=== PATIENT | male | born 1955 | race Caucasian/White ===

== ENCOUNTER 2018-04-10 14:05 | Inpatient (IN) | payer OTHER, SELFPAY ==
[2018-04-10] MEDS ORDERED: Acetaminophen 500 MG TAB ONE (14:45)
[2018-04-10 15:13] LABS: Hemoglobin 12.3 g/dL (14.0-18.0); Mean Corpuscular Hemoglobin 27.9 pg (27.0-31.0); Mean Corpuscular Volume 84.5 fL (78.0-98.0); Mean Platelet Volume 8.7 fL (7.4-10.4); Platelet Count 105 thou/uL (130-400); RBC Distribution Width 14.6 % (11.5-14.5); Red Blood Cell (RBC) Count 4.43 mill/uL (4.70-6.10); White Blood Cell (WBC) Count 4.8 thou/uL (4.8-10.8)
[2018-04-10 15:16] LABS: INR-International Normal Ratio 1.4; PTT 34.2 SEC (22.9-36.1); Prothrombin Time 16.9 SEC (12.0-14.7)
[2018-04-10 15:32] LABS: Anisocytosis SLIGHT = 6-15 cells (100X) (0-5/hpf); Band 10 % (5-11); Hypochromia SLIGHT = 6-15 cells (100X) (0-5/hpf); Lymphocytes 5 % (21-51); MDiff Complete? YES; Monocytes 2 % (0-10); Neutrophil 83 % (42-75); Platelet Morphology Comment Appears Decreased
[2018-04-10 15:34] LABS: ALT (SGPT) 34 U/L (8-55); AST (SGOT) 102 U/L (5-34); Albumin 3.4 g/dL (3.4-4.8); Alkaline Phosphatase 82 U/L (40-150); Anion Gap 13 mmol/L (10-20); BUN (Urea Nitrogen) 17 mg/dL (8.4-25.7); Bilirubin, Total 0.7 mg/dL (0.2-1.2); CK (CPK) 65 U/L (30-200); Calc. Creatinine Clearance 0 mL/min (70-130); Carbon Dioxide 22 mmol/L (23-31); Chloride 103 mmol/L (98-107); Estimated GFR-MDRD 66; Glucose 163 mg/dL (80-115); Potassium 4.5 mmol/L (3.5-5.1); Protein, Total 8.4 g/dL (5.8-8.1); Sodium 133 mmol/L (136-145)
--- NOTE | 2018-04-10 16:23 | RAD ---
CHEST 1 VIEW: Date: 04/10/18 HISTORY: Fever. COMPARISON: 06/19/16. FINDINGS: Cardiac silhouette is magnified by projection. Pulmonary vasculature remains upper limits of normal. Mediastinum is midline. No confluent air space consolidation or evidence of pneumothorax. Cardiac mon itor leads overlie the chest. IMPRESSION: No active cardiopulmonary abnormalities are demonstrated. POS: [facility]
[2018-04-10] MEDS ORDERED: Aspirin 325 MG TAB ONE (16:33)
--- NOTE | 2018-04-10 16:33 | CT ---
CT HEAD NONCONTRAST: History: Fall. Head injury. Left facial droop. FINDINGS: There is no evidence of acute intracranial hemorrhage or infarct. Ventricles appear normal in size, s hape, and position. A subtle small linear focus of increased density in the left temporal lobe is fav ored to represent coronoid in the lateral ventricle, possibly extending into the choroidal fissure. Visualized paranasal sinuses remain well aerated. IMPRESSION: No acute intracranial abnormalities are demonstrated. POS: [facility]
[2018-04-10] MEDS ORDERED: Oseltamivir 75 MG CAP PO SCH (18:30)
[2018-04-10] MEDS ORDERED: Ondansetron ODT 4 MG TAB PO PRN (19:15)
[2018-04-10] MEDS ORDERED: Labetalol HCl 100 MG/20 ML VIAL SLOW IVP PRN (19:15)
[2018-04-10] MEDS ORDERED: Guaifenesin DM 100-10/5 ML UDCUP PO PRN (19:15)
[2018-04-10] MEDS ORDERED: Acetaminophen 650 MG Suppository PR PRN (19:15)
[2018-04-10] MEDS ORDERED: hydrALAZINE 20 MG/ML VIAL SLOW IVP PRN (19:15)
[2018-04-10] MEDS ORDERED: Senokot S 8.6-50 MG TAB PO PRN (19:15)
[2018-04-10] MEDS ORDERED: Ondansetron PF 4 MG/2 ML Vial IVP PRN (19:15)
[2018-04-10 19:45] VITALS: BMI 34.9
[2018-04-10] MEDS: Acetaminophen 325 MG TAB PO PRN (20:48)
[2018-04-10] MEDS: Famotidine 20 MG TAB PO SCH (20:48)
[2018-04-10] MEDS: Pravastatin Sodium 20 MG TAB PO SCH (20:49)
--- NOTE | 2018-04-10 21:10 | HP ---
PRIMARY CARE PHYSICIAN: Dante Nelson DO CHIEF COMPLAINT: Weakness of the left side of body. HISTORY OF PRESENT ILLNESS: This is a 62-year-old white male with a known history of previous stroke in November of last year with left-sided weakness and left facial droop. His symptoms had improved markedly, maybe just a little bit of weakness, residual on the left side of his body and occasional shocks down into his left arm. He reports that he has been feeling more depressed about 2 weeks ago and stopped taking his medications including his SSRI and his Plavix, pravastatin, and losartan. He then started feeling really more weak about 2-3 days ago, felt kind of bad yesterday with some abdominal pain and then the patient this morning fell trying to get out of bed, noted significant weakness in the left side of his body and his daughter came over to check on him and thought that his face looked a little droopy on the left side, so they brought him to the emergency room. His symptoms improved after about 45 minutes and his strength is almost back the to baseline he has had after his previous stroke. He did spike some fevers today and then had a fever of 103 in the emergency room. His flu test came back positive. He said thinking back he has had some cough over the last couple of days and some runny nose with thick mucus, but no other symptoms from it. PAST MEDICAL HISTORY: 1. Stroke with left-sided symptoms with minimal residual. 2. Hypertension since his stroke, on losartan. 3. Mild hyperlipidemia, on pravastatin since stroke. 4. Psoriasis, followed by Dr. Gaytan. PAST SURGICAL HISTORY: Left knee ACL repair. 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 SOCIAL HISTORY: The patient is . His is present in the room. He quit smoking 20-30 years ago. No alcohol or illicit drug use. FAMILY HISTORY: Mother with diabetes and of dementia in her 60s. Father with diabetes, had myocardial infarction and in his 60s and a brother with diabetes mellitus as well. ALLERGIES: NO KNOWN DRUG ALLERGIES. CURRENT MEDICATIONS: 1. Pravastatin 10 mg daily. 2. Losartan 50 mg daily. 3. Citalopram 40 mg daily. 4. Clopidogrel 75 mg daily. REVIEW OF SYSTEMS: CONSTITUTIONAL: See HPI. EYES: He feels like his left eye is strained a little bit since the recurrent stroke symptoms. Otherwise, no blurred vision or double vision. ENT: See HPI. Minimal sore throat this morning. CARDIOVASCULAR: No chest pain. No palpitations or racing heart. PULMONARY: Some coughing, nonproductive. No shortness of breath. No wheezing. No chest tightness. GASTROINTESTINAL: Suprapubic crampy abdominal pain, on and off for the last 2-3 days. No diarrhea or constipation. No nausea or vomiting. GENITOURINARY: He has had a little bit of difficulty voiding recently, but no dysuria, no hematuria. MUSCULOSKELETAL: No muscle aches or joint pain. SKIN: He has some psoriatic plaques on his extensor surfaces of his hands, fingers, and wrists. These are at baseline, not requiring any medications for the last 2 months. No new skin lesions. NEUROLOGIC: See HPI. PSYCHIATRIC: See HPI. PHYSICAL EXAMINATION: VITAL SIGNS: Blood pressure 125/45, pulse 93, respirations 18, temperature 99.3, down from 103 after given Tylenol in the emergency room, O2 saturation 98% on room air. GENERAL: This is a well-developed, obese white male, in no acute distress. HEENT: Pupils are equal, round, and reactive to light. Oropharynx is with mild erythema of the posterior oropharynx. No exudate. No lesions. NECK: Supple. No lymphadenopathy. No thyroid nodules or enlargement. No JVD. HEART: Regular rate and rhythm. No murmurs, rubs, or gallops. LUNGS: Clear to auscultation bilaterally. No wheezes, crackles, or rhonchi. ABDOMEN: Soft, nontender to palpation. Normoactive bowel sounds. No hepatosplenomegaly or other masses. EXTREMITIES: No clubbing, cyanosis, or edema. SKIN: The patient has some silvery psoriatic plaques on the extensor surfaces of the fingers, hands and wrists bilaterally. NEUROLOGIC: The patient has intact strength 5/5 in bilateral upper and lower extremities. He has a minimal left facial droop compared to the right, better than previously from a picture that his showed from her phone. He has intact sensation throughout. Clear speech. PSYCHIATRIC: Alert, oriented x3. He has a little bit of a depressed mood and affect. LABORATORY DATA: CBC with a hemoglobin 12.3, hematocrit 37.4, and platelet count of 105. Coagulation profile with PT of 16.9, INR 1.4. Complete metabolic panel notable for a sodium of 133, carbon dioxide of 22, glucose of 163, AST of 102, and total serum protein of 8.4. The rest is normal. Chest x-ray; I did review the chest x-ray done in the emergency room along with the radiologist's report. There are no infiltrates, no cardiomegaly, no acute cardiopulmonary process. CT of the brain was normal per the radiologist's report. ASSESSMENT: 1. Acute transient ischemic attack versus recurrent stroke. The patient's symptoms seem to be back to baseline after his previous stroke, it is possible that he actually had uncovering of previous stroke symptoms from the stress of his flu infection versus a recurrent stroke. We will put him back on his Plavix, give him aspirin, and get an MRI of the brain and neurologic consult for tomorrow. We will monitor his blood pressures, but allow permissive hypertension. 2. Acute influenza A without evidence of pneumonia or any complications. We will give a dose of Tamiflu here in the emergency room and continue for a total of 10 doses and give Tylenol as needed for fever. 3. History of hypertension. We will resume patient's losartan once we have ruled out an acute stroke. 4. Hyperlipidemia. We will resume patient's pravastatin. He might benefit from increase to a stronger medicine as well. We will go ahead and resume the statin, but we will also get a lipid profile in the morning to see if he needs an increase in dose. 5. Gastrointestinal prophylaxis. We will put the patient on Pepcid twice a day. 6. Deep venous thrombosis prophylaxis. We will put the patient on SCDs while in bed. We will hold Lovenox and heparin due to the low platelet count. 7. Thrombocytopenia, mild. Uncertain of the cause at this point. We will monitor closely. 8. Code status. I did discuss this with the patient. He stats he is a full code. Though he would not want to have extensive resuscitation efforts done, just try a few times to get his heart beat back. Should he be incapacitated, he states that his would be his medical decision maker, her name is Helena Vick. Job ID: [id number]
[2018-04-11] MEDS: Acetaminophen 325 MG TAB PO PRN ×3 (00:48→13:26)
[2018-04-11 05:57] LABS: Anion Gap 11 mmol/L (10-20); BUN (Urea Nitrogen) 20 mg/dL (8.4-25.7); Calc. Creatinine Clearance 121 mL/min (70-130); Calcium 8.2 mg/dL (7.8-10.44); Carbon Dioxide 23 mmol/L (23-31); Cardiac Risk 3.3 (Less than 4.5); Chloride 105 mmol/L (98-107); Cholesterol 83 mg/dl (< 200 Desired); Estimated GFR-MDRD 71; Glucose 93 mg/dL (80-115); HDL Cholesterol 25 mg/dL (>60 Neg Risk); LDL Cholesterol, Calculated 40 mg/dL; Potassium 3.9 mmol/L (3.5-5.1); Sodium 135 mmol/L (136-145); Triglycerides 90 mg/dL (Less than 150)
[2018-04-11 07:22] LABS: Hemoglobin 10.7 g/dL (14.0-18.0); Mean Corpuscular HGB CONC 33.3 g/dL (32.0-36.0); Mean Corpuscular Hemoglobin 28.7 pg (27.0-31.0); Mean Corpuscular Volume 86.3 fL (78.0-98.0); Mean Platelet Volume 9.5 fL (7.4-10.4); Platelet Count 66 thou/uL (130-400); RBC Distribution Width 14.4 % (11.5-14.5); Red Blood Cell (RBC) Count 3.71 mill/uL (4.70-6.10); White Blood Cell (WBC) Count 2.8 thou/uL (4.8-10.8)
[2018-04-11 08:41] LABS: Band 27 % (5-11); Lymphocytes 1 % (21-51); MDiff Complete? YES; Monocytes 17 % (0-10); Neutrophil 46 % (42-75); Platelet Morphology Comment Appears Decreased; Polychromasia SLIGHT = 2-3 cells (100X) (0-2/hpf); Reactive Lymphocytes 10 % (0-10)
--- NOTE | 2018-04-11 08:47 | PDOC.PN ---
- Subjective Encounter Start Date: 04/11/18 Encounter Start Time: 10:00 Subjective: Patient with fever overnight. Feeling a bit better this morning. -: ASA and Plavix on hold due to drop in platelets. - Objective Resuscitation Status - Order Detail: 04/10/18 17:58 Resuscitation Status Routine Resuscitation Status: FULL: Full Resuscitation Discussed with: Patient Additional comments: Don't try for a prolonged time MAR Reviewed: Yes Vital Signs & Weight: Vital Signs (12 hours) Temp Pulse Resp BP Pulse Ox 04/11/18 07:36 100.6 F H 84 18 100/53 L 91 L 04/11/18 04:00 101.1 F H 83 18 112/49 L 90 L 04/11/18 00:00 102.8 F H 88 18 95/51 L 100 Weight Weight 265 lb Result Diagrams: 04/11/18 04:30 04/11/18 04:30 Phys Exam - Physical Examination Constitutional: NAD HEENT: moist MMs Respiratory: no wheezing, no rales, no rhonchi Cardiovascular: RRR Gastrointestinal: soft, positive bowel sounds Neurological: non-focal, moves all 4 limbs left facial droop appears resolved Psychiatric: normal affect, A&O x 3 Dx/Plan (1) Left-sided weakness Code(s): R53.1 - WEAKNESS Status: Acute Comment: improved, TIA vs. recurrent stroke, MRI and neuro consult, restarted on ASA and Plavix but now held due to low platelets (2) Influenza A Code(s): J10.1 - FLU DUE TO OTH IDENT INFLUENZA VIRUS W OTH RESP MANIFEST Status: Acute Comment: still febrile, started on Tamiflu (3) Sepsis Code(s): A41.9 - SEPSIS, UNSPECIFIED ORGANISM Status: Acute Comment: febrile , BP running low in hypertensive patient, will start fluids, no evidence bacterial superinfection at this time (4) Hypertension Code(s): I10 - ESSENTIAL (PRIMARY) HYPERTENSION Status: Chronic Qualifiers: Hypertension type: essential hypertension Qualified Code(s): I10 - Essential (primary) hypertension Comment: hold BP meds for now due to low blood pressures and possible acute stroke (5) Hyperlipidemia Code(s): E78.5 - HYPERLIPIDEMIA, UNSPECIFIED Status: Chronic Comment: on statin, well controlled (6) Thrombocytopenia Code(s): D69.6 - THROMBOCYTOPENIA, UNSPECIFIED Status: Acute Comment: further drop to 60,000, uncertain eitiology, possibly sequela of flu, no bleeding at this time, holding antiplatelets agents until seen by neurology - Plan cont current plan of care, PT/OT, DVT proph w/SCDs * . - Discharge Day Encounter end time: 10:10
[2018-04-11] MEDS ORDERED: Aspirin 81 mg Enteric Coated Tablet PO SCH (09:00)
[2018-04-11] MEDS: Clopidogrel Bisulfate 75 MG TAB PO SCH (09:20)
[2018-04-11] MEDS: Oseltamivir 75 MG CAP PO SCH ×2 (09:21→20:37)
[2018-04-11] MEDS: Famotidine 20 MG TAB PO SCH ×2 (09:21→20:36)
[2018-04-11] MEDS: Sodium Chloride 0.9% 1,000 ML IV SCH (09:28)
--- NOTE | 2018-04-11 15:46 | MRI ---
MRI OF BRAIN WITHOUT CONTRAST: 04/11/18 HISTORY: Evaluate for stroke. COMPARISON: None. CORRELATION: Noncontrast head CT 04/10/18. TECHNIQUE: Brain MRI is performed without intravenous gadolinium administration. Multisequential, multiplanar im aging is performed. FINDINGS: No evidence of acute hemorrhage on the axial gradient echo sequence. There is probable hemosiderin de position in the region of the previously noted malacic and gliotic change. There is associated T2 and STIR hyperintensity. Additional cortically based STIR hyperintensities are noted and are nonspecifi c. No associated restricted diffusion. No evidence of restricted diffusion with regards to the cerebr um or cerebellum. Central arterial flow voids are maintained. Mild mucosal thickening of the paranasal sinuses. IMPRESSION: Absent restricted diffusion. No acute infarct. POS: [facility]
--- NOTE | 2018-04-11 17:51 | CON ---
DATE OF CONSULTATION: 04/11/2018 CONSULTING PHYSICIAN: Hospitalist Services. IMPRESSION: 1. Transient weakness, likely secondary to ongoing fever accentuating his prior neurologic injury. 2. Flu. PLAN: Continue prior antiplatelet and statin therapy. HISTORY OF PRESENT ILLNESS: Mr. Vick is a 62-year-old male with a history of stroke, resulting in some left-sided weakness. He had made a good recovery and was doing well. For the 2-3 days prior to admission, he had been running a high fever. He was feeling pretty beat up and sore. He got out of bed and tried to take a step and his legs seem to give way on him. He subsequently was brought in by ambulance for further evaluation. Initial CT scan of the brain was quite unremarkable. His MRI of the brain shows an old right frontal cortical infarct. His lab work was all unremarkable as well including a lipid ratio of 3.3. He has ran a fever as high as 103. He was subsequently diagnosed with the flu since admission. PAST HISTORY: 1. Hypertension. 2. Hyperlipidemia. 3. Stroke. SOCIAL HISTORY: No tobacco or alcohol. FAMILY HISTORY: Noncontributory. MEDICATIONS: List was reviewed. REVIEW OF SYSTEMS: A 10-system review of systems was otherwise unremarkable. PHYSICAL EXAMINATION: GENERAL: He is a somewhat overweight middle-aged man, in no acute distress. VITAL SIGNS: Otherwise stable. HEENT: Pupils equal and reactive. Conjunctivae clear. Oropharynx clear. NECK: Supple. EXTREMITIES: No cyanosis, clubbing, or edema. NEUROLOGIC: He was alert and cooperative. His speech is fluent and clear. Cranial nerves 2 through 12 are intact. Motor strength testing does not show any asymmetry at this point. Sensation was equal to touch. His [id number] movements were smooth. He can stand and walk independently. LABORATORY DATA: EKG shows a sinus rhythm. SUMMARY: A middle-aged man with some transient weakness on the left in association with high fever related to the flu. I do not think there was an ischemic event, but more likely just accentuation of his old injury due to the fever. I would be happy to follow up with him as needed. Job ID: [id number]
[2018-04-11] MEDS: Pravastatin Sodium 20 MG TAB PO SCH (20:36)
[2018-04-12] MEDS: Acetaminophen 325 MG TAB PO PRN ×2 (03:24→09:22)
[2018-04-12] MEDS: Sodium Chloride 0.9% 1,000 ML IV SCH ×2 (03:25→09:20)
[2018-04-12 05:54] LABS: #Lymphocytes 0.8 thou/uL (1.20-3.40); #Monocytes 0.2 thou/uL (0.11-0.59); #Neutrophils 1.5 thou/uL (1.40-6.50); %Basophils 1.8 % (0.0-1.0); %Eosinophils 0.9 % (0.0-10.0); %Lymphocytes 31.6 % (21.0-51.0); %Monocytes 8.3 % (0.0-10.0); %Neutrophils 57.6 % (42.0-75.0); Hemoglobin 11.3 g/dL (14.0-18.0); Mean Corpuscular HGB CONC 32.7 g/dL (32.0-36.0); Mean Corpuscular Hemoglobin 28.1 pg (27.0-31.0); Mean Corpuscular Volume 85.9 fL (78.0-98.0); Mean Platelet Volume 9.8 fL (7.4-10.4); Platelet Count 65 thou/uL (130-400); RBC Distribution Width 14.4 % (11.5-14.5); Red Blood Cell (RBC) Count 4.02 mill/uL (4.70-6.10); White Blood Cell (WBC) Count 2.6 thou/uL (4.8-10.8)
[2018-04-12 07:43] VITALS: BP 117/61; TEMP 98.6
[2018-04-12] MEDS: Clopidogrel Bisulfate 75 MG TAB PO SCH (09:21)
[2018-04-12] MEDS: Famotidine 20 MG TAB PO SCH (09:21)
[2018-04-12] MEDS: Oseltamivir 75 MG CAP PO SCH (09:22)
--- NOTE | 2018-04-12 10:24 | DIS ---
DATE OF ADMISSION: 04/10/2018 DATE OF DISCHARGE: 04/12/2018 PRIMARY CARE PHYSICIAN: Dr. Dante Nelson. DISCHARGE DISPOSITION: Home. PRIMARY DISCHARGE DIAGNOSES: 1. Sepsis due to influenza A. 2. Smyms-dx-dicapxa left-sided weakness, resolved. SECONDARY DISCHARGE DIAGNOSES: 1. Hypertension. 2. Dyslipidemia. 3. Chronic thrombocytopenia. 4. History of cerebrovascular accident with residual left-sided weakness. PRIMARY PROCEDURES/OPERATIONS: None. RADIOLOGICAL INVESTIGATION: CT of brain is negative for any acute intracranial process. Chest x-ray is normal. MRI of brain did not show any acute process. SIGNIFICANT LABORATORY DATA: WBC 2.6, hemoglobin 11.3, platelets 65. INR 1.4. Sodium 135, creatinine 1.06. LFTs; AST 102, ALT 34, alkaline phosphatase 82, albumin 3.4. LDL 40. Cardiac enzymes, negative. Influenza A, positive. DISCHARGE MEDICATIONS: 1. Celexa 40 mg daily. 2. Plavix 75 mg p.o. daily. 3. Cozaar 50 mg p.o. daily. 4. Pravastatin 10 mg p.o. at bedtime. 5. Tamiflu 75 mg p.o. b.i.d. for 3 more days. CONTRAINDICATION: None. CODE STATUS: Full code. INPATIENT ANTISQUEAK APPLIER: Dr. Genaro Simpson, neurologist was consulted while in hospital. TEST RESULT PENDING ON DISCHARGE: None. ALLERGIES: NO KNOWN DRUG ALLERGIES. DISCHARGE PLAN: Post hospital, the patient will follow up with primary care physician in 1 or 2 weeks. HOSPITAL COURSE: A 62-year-old male, who was admitted by Dr. Hao Lambert. Please see his H and P for further details. The patient was having flu-like symptoms. His influenza A was positive. He was also experiencing more weakness on the left side. He had previous stroke and left-sided weakness with mild residual weakness, that was getting little bit worse. Initial CT of brain was negative, and MRI of brain did not show any acute process. We suspected sepsis-related hypoperfusion in his brain, which might have caused previous area of infarct acting up and Neurology did not recommend any new medication. His weakness on the left side completely improved to baseline. He has low-grade fever while in the hospital from flu, which we are expecting to improve in next day or two. We are prescribing Tamiflu. His sepsis is resolving. He will continue taking all his medication and I advised him to take blood pressure if blood pressure is more than 120. The patient is seen and examined at bedside today. All review of systems reviewed with him and are negative. Plan of care discussed with . PHYSICAL EXAMINATION: VITAL SIGNS: Currently, temperature 98.6, pulse 63, respiratory rate 20, saturation 94% on room air, blood pressure 117/61, weight 265 pounds. GENERAL: The patient is currently alert, oriented, in no acute distress. HEENT: Head; normocephalic, atraumatic. Eyes; pupils are round, reactive to light. Extraocular muscle intact. ENT; oropharynx within normal limit. Moist mucous membranes. No oral lesion. No pharyngeal erythema. No exudate. NECK: Supple. No JVD. No thyromegaly. No carotid bruit. LUNGS: Clear to auscultation without any rhonchi or rales. CARDIAC: S1, S2. Regular without any murmur. ABDOMEN: Soft and benign. EXTREMITIES: No edema. NEUROLOGICAL: Nonfocal examination. The patient is medically stable for discharge today. Job ID: [id number]
--- NOTE | 2018-04-13 17:34 | EKG ---
Test Reason : Blood Pressure : / mmHG Vent. Rate : 111 BPM Atrial Rate : 111 BPM P-R Int : 152 ms QRS Dur : 088 ms QT Int : 326 ms P-R-T Axes : 051 025 048 degrees QTc Int : 443 ms Sinus tachycardia Otherwise normal ECG Confirmed by LAXMI HEREDIA, MIKE Orellana ([id number]), editor newspaper CHINTAN OVALLE ([id number]) on 04/13/2018 5:34:18 PM Referred By: Confirmed By:MIKE HAIR MD
== END 2018-04-12 10:43 | disposition home or self-care (01) | DRG 872 ==
LOC: ERS 14:05 → 2SE 16:21
PROVIDERS: ADMIT Emergency Medicine; ATTEND Emergency Medicine
DX: A41.89 Other specified sepsis (principal); I69.354 Hemiplegia and hemiparesis following cerebral infarction affecting left non-dominant side; J10.1 Influenza due to other identified influenza virus with other respiratory manifestations; E78.5 Hyperlipidemia, unspecified; D69.6 Thrombocytopenia, unspecified; I10 Essential (primary) hypertension; L40.9 Psoriasis, unspecified; Z98.890 Other specified postprocedural states
CPT/HCPCS: 36415; 70450; 70551; 71045; 80048; 80053; 80061; 82550; 84484; 85025; 85610; 85730; 87804; 93005; 96360

== ENCOUNTER 2020-07-02 09:31 | Outpatient (CLI) | payer MEDICARE, BC ==
[2020-07-02] MEDS ORDERED: Iopamidol-370 76% 500 ML 1 ML ONE (11:07)
== END 2020-07-02 09:32 | disposition home or self-care (01) ==
LOC: BICCT 09:31
PROVIDERS: ATTEND Physician Assistant Medical
DX: K74.60 Unspecified cirrhosis of liver (principal); K76.0 Fatty (change of) liver, not elsewhere classified; K59.00 Constipation, unspecified; K25.3 Acute gastric ulcer without hemorrhage or perforation; D64.9 Anemia, unspecified; R16.0 Hepatomegaly, not elsewhere classified; K76.6 Portal hypertension; Z86.010 Personal history of colon polyps
CPT/HCPCS: 74170; 82565; Q9967

== ENCOUNTER 2022-10-13 10:06 | Outpatient (CLI) | payer BC, MEDICARE | END 2022-10-13 10:07 | disposition home or self-care (01) | LOC: LABBT 10:06 | PROVIDERS: ATTEND Orthopaedic Surgery | DX: Z01.818 Encounter for other preprocedural examination (principal); M17.11 Unilateral primary osteoarthritis, right knee | CPT/HCPCS: 71046; 93005; 93010 ==

== ENCOUNTER 2022-10-18 05:25 | Observation (INO) | payer BC, MEDICARE ==
[2022-10-13 10:48] VITALS: BMI 28.0
[2022-10-13 11:31] LABS: Bilirubin Neg (Negative); Blood, Urine Negative (Negative); Clarity Clear (Clear); Glucose, Urine (Dipstick) Normal (Negative); Ketone, Urine Negative (Negative); Leukocyte Negative (Negative); Nitrite Negative (Negative); Protein, Urine (Dipstick) Negative (Neg-Trace); Urobilinogen Normal mg/dL (Less than 2)
[2022-10-13 11:55] LABS: Anion Gap 16 mmol/L (10-20); BUN (Urea Nitrogen) 34 mg/dL (8.4-25.7); Calc. Creatinine Clearance 0 mL/min (70-130); Calcium 9.3 mg/dL (7.8-10.44); Carbon Dioxide 26 mmol/L (23-31); Chloride 108 mmol/L (98-107); Estimated GFR 46; Glucose 123 mg/dL (80-115); Potassium 4.6 mmol/L (3.5-5.1); Sodium 145 mmol/L (136-145)
[2022-10-13 11:59] LABS: #Eosinphils 0.1 10x3/uL (0.0-0.5); #Monocytes 0.4 10x3/uL (0.0-1.1); %Basophils 0.7 % (0.0-2.0); %Eosinophils 1.9 % (0.0-6.0); %Lymphocytes 18.5 % (18.0-47.0); %Monocytes 9.2 % (0.0-10.0); %Neutrophils 69.2 % (40.0-75.0); Hematocrit 36.4 % (38.8-50.0); Hemoglobin 10.7 g/dL (13.5-17.5); Mean Corpuscular HGB CONC 29.4 g/dL (32.0-36.0); Mean Corpuscular Hemoglobin 22.9 pg (27.0-33.0); Mean Corpuscular Volume 77.9 fl (81.2-95.1); Mean Platelet Volume 11.2 fl (7.4-10.4); Platelet Count 212 10x3/uL (150-450); RBC Distribution Width 21.1 % (11.5-14.5); Red Blood Cell (RBC) Count 4.67 10x6/uL (4.32-5.72); White Blood Cell (WBC) Count 4.3 10x3/uL (3.5-10.5)
[2022-10-13 12:01] LABS: Prothrombin Time 10.7 sec (9.5-12.1)
[2022-10-18] MEDS ORDERED: Tranexamic Acid 1,000 MG/10 ML VIAL ONE ×2 (05:54→10:03)
[2022-10-18] MEDS ORDERED: Sodium Chloride 0.9% 100 ML ONE ×2 (05:54→07:12)
[2022-10-18] MEDS ORDERED: Vancomycin (BATCH) 1.5 GRAM/300 ML BAG ONE (05:54)
[2022-10-18] MEDS ORDERED: Bupivacaine PF 0.5% 30 ML VIAL ONE (06:50)
[2022-10-18] MEDS ORDERED: EPINEPHrine 1 MG/ML AMP ONE (06:50)
[2022-10-18] MEDS ORDERED: Lidocaine 1% (PF) 30 ML VIAL ONE (06:50)
[2022-10-18] MEDS ORDERED: Midazolam HCl 2 mg/2 ml Vial ONE (06:50)
[2022-10-18] MEDS ORDERED: fentaNYL 50 mcg/mL 1 mL Vial ONE ×4 (06:50→11:32)
[2022-10-18] MEDS ORDERED: CEFAZOLIN 2 GM VIAL ONE (07:12)
[2022-10-18] MEDS ORDERED: Bupivacaine 0.25% HCL 30 ML VIAL ONE (07:12)
[2022-10-18] MEDS ORDERED: PROPOFOL 200 MG/20 ML VIAL ONE (07:37)
[2022-10-18] MEDS ORDERED: Ondansetron PF 4 MG/2 ML Vial ONE (07:37)
[2022-10-18] MEDS ORDERED: Dexamethasone 20 MG/5 ML VIAL ONE (07:37)
[2022-10-18] MEDS ORDERED: fentaNYL 50 mcg/mL 1 mL Vial SLOW IVP PRN (07:59)
[2022-10-18] MEDS ORDERED: HYDROcodone/Acetaminophen 10/325 mg Tablet PO PRN (08:00)
[2022-10-18] MEDS ORDERED: traMADol HCl 50 MG TAB PO PRN ×2 (08:00)
[2022-10-18] MEDS ORDERED: Zolpidem Tartrate 5 MG TAB PO PRN ×2 (08:00→09:30)
[2022-10-18] MEDS ORDERED: Promethazine HCl 25 MG/ML VIAL IM PRN ×2 (08:00→09:30)
[2022-10-18] MEDS ORDERED: Ropivacaine 0.2% 550 ML 550 ML NERVE BLCK SCH (08:00)
[2022-10-18] MEDS ORDERED: Ondansetron PF 4 MG/2 ML Vial IVP PRN ×2 (08:00→09:30)
[2022-10-18] MEDS ORDERED: Tranexamic Acid 1,000 MG in Sodium Chloride 0.9% 100 ML IVPB SCH (09:30)
[2022-10-18] MEDS ORDERED: diphenhydrAMINE 25 MG CAP PO PRN (09:30)
[2022-10-18] MEDS ORDERED: Acetaminophen 325 MG TAB PO PRN (09:30)
[2022-10-18] MEDS ORDERED: Meperidine HCl/PF 25 MG/ML VIAL ONE (09:39)
[2022-10-18] MEDS: CEFAZOLIN 2 GM in Sodium Chloride 0.9% 100 ML IVPB SCH ×2 (15:39→20:23)
[2022-10-18] MEDS: Sodium Chloride 0.9% 1,000 ML IV SCH ×2 (16:13→19:43)
[2022-10-18] MEDS ORDERED: Vancomycin HCl 1.5 GM in Sodium Chloride 0.9% 250 ML 300 ML IVPB SCH (18:00)
[2022-10-18] MEDS ORDERED: Vancomycin 1.5 GRAM/300 ML BAG 1.5 GM in Premix Bag 1 BAG IVPB SCH (18:15)
[2022-10-18] MEDS: Senokot S 8.6-50 MG TAB PO SCH (20:22)
[2022-10-18] MEDS: Aspirin 81 mg Enteric Coated Tablet PO SCH (20:23)
[2022-10-18] MEDS: Ferrous Gluconate 324 MG TAB PO SCH (20:23)
[2022-10-18] MEDS: Mycophenolate 250 MG CAP PO SCH (20:24)
[2022-10-18] MEDS ORDERED: MYCOPHENOLATE MOFETIL 500 MG PO SCH (21:00)
[2022-10-18] MEDS ORDERED: Tacrolimus 1 MG CAP PO SCH (21:00)
[2022-10-19] MEDS: HYDROcodone/Acetaminophen 10/325 mg Tablet PO PRN ×2 (00:57→08:41)
[2022-10-19] MEDS: Sodium Chloride 0.9% 1,000 ML IV SCH (06:34)
[2022-10-19 07:05] VITALS: TEMP 97.3
[2022-10-19 07:08] LABS: Hematocrit 31.1 % (42.0-52.0); Hemoglobin 9.3 g/dL (14.0-18.0); Mean Corpuscular HGB CONC 29.9 g/dL (32.0-36.0); Mean Corpuscular Hemoglobin 23.5 pg (27.0-31.0); Mean Corpuscular Volume 78.7 fl (78.0-98.0); Mean Platelet Volume 10.1 fL (7.4-10.4); Platelet Count 141 10x3/uL (130-400); RBC Distribution Width 22.1 % (11.5-14.5); Red Blood Cell (RBC) Count 3.95 mill/uL (4.70-6.10); White Blood Cell (WBC) Count 5.6 10x3/uL (4.8-10.8)
[2022-10-19] MEDS: Senokot S 8.6-50 MG TAB PO SCH (08:42)
[2022-10-19] MEDS: Aspirin 81 mg Enteric Coated Tablet PO SCH (08:42)
[2022-10-19] MEDS: Ferrous Gluconate 324 MG TAB PO SCH (08:44)
[2022-10-19] MEDS: Mycophenolate 250 MG CAP PO SCH (08:44)
[2022-10-19] MEDS ORDERED: Aspirin 325 MG TAB PO SCH (09:00)
[2022-10-19] MEDS ORDERED: Multivitamin W/ Minerals 1 TAB PO SCH (09:00)
[2022-10-19] MEDS ORDERED: Tacrolimus 1 MG CAP PO SCH (09:00)
[2022-10-19 09:04] VITALS: BP 135/65
== END 2022-10-19 11:23 | disposition home or self-care (01) ==
LOC: SDC 05:25 → SJJU 09:30
PROVIDERS: ADMIT Orthopaedic Surgery; ATTEND Orthopaedic Surgery
PROC: 0SRC0JZ Replacement of Right Knee Joint with Synthetic Substitute, Open Approach (ICD-10-PCS; principal; 2022-10-18)
DX: M17.31 Unilateral post-traumatic osteoarthritis, right knee (principal); G45.9 Transient cerebral ischemic attack, unspecified; D61.818 Other pancytopenia; K74.60 Unspecified cirrhosis of liver; R16.1 Splenomegaly, not elsewhere classified; Z98.890 Other specified postprocedural states; Z95.5 Presence of coronary angioplasty implant and graft; Z90.49 Acquired absence of other specified parts of digestive tract; Z87.891 Personal history of nicotine dependence; Z79.82 Long term (current) use of aspirin; Z79.4 Long term (current) use of insulin; Z79.899 Other long term (current) drug therapy
CPT/HCPCS: 36415; 80048; 81003; 85025; 85027; 85610; 86850; 86900; 86901; 87081; A4306; C1776; J0171; J1100; J2001; J2175; J2250; J2405; J2704; J2795; J3010; J3370; J3490; S0020